=== PATIENT | female | born 1985 | race Two or more races ===

== ENCOUNTER 2020-09-01 10:42 | Emergency (ER) | payer SELFPAY ==
--- NOTE | 2020-09-01 11:22 | ED Physician Documentation ---
PD HPI UPPER EXT INJURY - Stated complaint Stated Complaint: L HAND PX - Chief complaint Chief Complaint: Trauma Ext - History obtained from History obtained from: Patient - History of Present Illness Location: Left, Finger (thumb base) Type of injury: Fall (she states she slipped and fell onto left hand by her side, with pain at base of thumb. Not sure if twisted or jammed it.) Where [place] occurred[place] Timing - onset: Yesterday Timing - details: Abrupt onset, Still present Associated symptoms: Swelling, Discolored (some mild bruising color around thenar area.). No: Weakness, Numbness Similar symptoms before: Has not had sx before Review of Systems Constitutional: denies: Fever, Chills Nose: denies: Rhinorrhea / runny nose, Congestion Throat: denies: Sore throat Respiratory: denies: Cough Musculoskeletal: denies: Neck pain, Back pain Neurologic: denies: Focal weakness, Numbness, Head injury PD PAST MEDICAL HISTORY - Past Medical History Cardiovascular: None Respiratory: None Neuro: None Endocrine/Autoimmune: None GI: None SMASHER: None : None HEENT: None Psych: None Musculoskeletal: None Derm: None - Past Surgical History Past Surgical History: No /SMASHER: Breast reduction - Present Medications Home Medications: Ambulatory Orders Medication Instructions Recorded Confirmed No Known Home Medications 09/01/20 09/01/20 - Allergies Allergies/Adverse Reactions: Allergies Allergy/AdvReac Type Severity Reaction Status Date / Time Penicillins Allergy Unknown Verified 09/01/20 10:50 - Social History Does the pt smoke?: No Smoking Status: Never smoker Does the pt drink ETOH?: No Does the pt have substance abuse?: No - Immunizations Immunizations are current?: Yes PD ED PE NORMAL - Vitals Vital signs reviewed: Yes - General General: Alert and oriented X 3, Well developed/nourished - Derm Derm: Normal color, Warm and dry - Extremities Extremities: Other (left thumb base with some swelling and tenderness. Mild bruising/swelling in thenar area. Stiff ROM of the thumb with the swelling, but able to move all directions against resistance. Normal color, cap refill and sensation at tip. ) - Neuro Neuro: No motor deficit, No sensory deficit Results - Vitals Vitals: Vital Signs - 24 hr 09/01/20 09/01/20 10:51 12:20 Temperature 36.7 C 36.6 C Heart Rate 70 68 Respiratory 18 16 Rate Blood Pressure 129/64 124/62 O2 Saturation 100 100 Oxygen O2 Source Room air - Rads (name of study) left thumb Radiology: Prelim report reviewed (no fractures nor dislocaitons), See rad report PD MEDICAL DECISION MAKING - ED course Complexity details: considered differential (sprain vs fracture. Too swollen and tender to really test UCL stability. Will splint with thumb spica. ), d/w patient Departure - Departure Disposition: 01 Home, Self Care Clinical Impression: Fall from slip, trip, or stumble Qualifiers: Encounter type: initial encounter Qualified Code(s): W01.0XXA - Fall on same level from slipping, tripping and stumbling without subsequent striking against object, initial encounter Left thumb sprain Qualifiers: Encounter type: initial encounter Sprain of finger site: metacarpophalangeal joint Qualified Code(s): S63.642A - Sprain of metacarpophalangeal joint of left thumb, initial encounter Condition: Stable Record reviewed to determine appropriate education?: Yes Instructions: ED Sprain Finger Follow-Up: Nguyễn Tanner MD [Provider Admit Priv/Credential] - Comments: Your x-ray appears normal without any fractures or dislocation. You can still sprain the ligaments at the base of the thumb and can take a while to heal sometimes. Initially we would treat it with a splint and reduced motion. I would anticipate improvement over the next several days to a week with the swelling down and protected motion. Follow-up with your primary care or orthopedics if not improved/resolved well within 1 to 2 weeks. Discharge Date/Time: 09/01/20 12:20
--- NOTE | 2020-09-01 11:58 | XRAY Report ---
PROCEDURE: Finger(s) LT INDICATIONS: thumb base pain after fall TECHNIQUE: AP hand, 2 views of the first finger(s) acquired. COMPARISON: None FINDINGS: Bones: No fractures or dislocations. No suspicious bony lesions. Soft tissues: No suspicious soft tissue calcifications. IMPRESSION: No acute left thumb fracture or dislocation. Reviewed by: Wayne Phillips MD on 09/01/2020 11:56 AM [facility] Approved by: Wayne Phillips MD on 09/01/2020 11:56 AM [facility] Station ID: [id number]
[2020-09-01] MEDS ORDERED: IBUPROFEN 600 MG TABLET PO STA (12:02)
[2020-09-01 12:21] VITALS: BP 124/62
== END 2020-09-01 12:20 | disposition home or self-care (01) ==
LOC: ED 10:42
DX: S63.642A Sprain of metacarpophalangeal joint of left thumb, initial encounter (principal); V00.111A Fall from in-line roller-skates, initial encounter; Y93.51 Activity, roller skating (inline) and skateboarding; Y92.830 Public park as the place of occurrence of the external cause
CPT/HCPCS: 73140; 99283; A9270